=== PATIENT | male | born 1995 | race African-American/Black ===

== ENCOUNTER 2017-01-09 21:20 | Emergency (ER) | payer BC ==
[~2017-01-09 21:20] MED LIST: INSULIN
[2017-01-09] MEDS ORDERED: NOVOLOG100 UNITS/ SC (21:33)
[2017-01-09] MEDS ORDERED: TRESIBA FL200 UNIT/1 SC (21:33)
[2017-01-09] MEDS ORDERED: KEFLEX500 M4 PO (21:51)
== END 2017-01-09 22:05 ==
LOC: EDMED 21:20
DX: K13.0 Diseases of lips (principal)